=== PATIENT | female | born 1960 | race Caucasian/White ===

== ENCOUNTER 2020-01-11 12:28 | Outpatient (CLI) | payer BC ==
--- NOTE | 2020-01-12 09:54 | MRI ---
MRI RIGHT THUMB: Date: 01/11/2020 PROVIDED CLINICAL HISTORY: Right thumb pain without injury. FINDINGS: No comparisons. There is a circumscribed focus of fluid signal intensity at the dorsal aspect of the thumb IP joint, the distal aspects of which terminate proximal to the nail fold. This measures about 9.0 mm in cranio caudal dimension. This is difficult to visualize on the axial sequence, but probably measures about 4 .0 mm in transverse dimension. This is superficial to the terminal band of the thumb extensor tendon. The extensor tendon and subjacent bone appear normal. The nail plate and nail bed appear normal. The IP and MCP joint spaces appear maintained. No regional joint effusion is evident. The thumb radia l and ulnar collateral ligaments appear intact. The courses of the regional major neurovascular struc tures appear unremarkable. No focal concerning regional marrow or muscular signal abnormality apparen t. The thumb flexor, abductor, and adductor tendons appear intact. IMPRESSION: 9.0 mm circumscribed fluid signal intensity mass superficial to the thumb IP joint as described. Cons ider postcontrast imaging to discriminate between cystic and solid lesion. Differential consideration s would include ganglion cyst, soft tissue chondroma and hemangioma. POS: [facility]
== END 2020-01-11 12:29 | disposition home or self-care (01) ==
LOC: SCSMRI 12:28
PROVIDERS: ATTEND Orthopaedic Surgery
DX: M79.644 Pain in right finger(s) (principal)

== ENCOUNTER 2020-02-17 07:18 | Outpatient (CLI) | payer BC, OTHER ==
[2020-02-17 18:02] LABS: #Basophils 0.1 thou/uL (0.0-0.2); #Eosinphils 0.1 thou/uL (0.0-0.7); #Lymphocytes 1.9 thou/uL (1.20-3.40); #Monocytes 0.5 thou/uL (0.11-0.59); #Neutrophils 2.9 thou/uL (1.40-6.50); %Lymphocytes 35.6 % (21.0-51.0); %Monocytes 8.5 % (0.0-10.0); %Neutrophils 53.9 % (42.0-75.0); Hemoglobin 13.8 g/dL (12.0-16.0); Mean Corpuscular HGB CONC 35.2 g/dL (32.0-36.0); Mean Corpuscular Hemoglobin 30.4 pg (27.0-31.0); Mean Corpuscular Volume 86.3 fL (78.0-98.0); Mean Platelet Volume 8.1 fL (7.4-10.4); Platelet Count 229 thou/uL (130-400); RBC Distribution Width 11.8 % (11.5-14.5); Red Blood Cell (RBC) Count 4.56 mill/uL (4.20-5.40); White Blood Cell (WBC) Count 5.4 thou/uL (4.8-10.8)
[2020-02-18 12:16] LABS: SARS-CoV-2 MS2 Positive; SARS-CoV-2 N Gene Negative; SARS-CoV-2 S Gene Negative; SARS-CoV-2 orf1ab Negative
== END 2020-02-17 07:19 | disposition home or self-care (01) ==
LOC: LABBT 07:18
PROVIDERS: ATTEND Orthopaedic Surgery Hand Surgery
DX: Z01.818 Encounter for other preprocedural examination (principal); Z11.59 Encounter for screening for other viral diseases; M67.441 Ganglion, right hand
CPT/HCPCS: 85025; 87635; 93005; 93010; U0003

== ENCOUNTER 2020-02-20 12:11 | Day surgery (SDC) | payer BC ==
[2020-02-17 14:15] VITALS: BMI 23.3
[~2020-02-20 12:11] MED LIST: Dexamethasone 20 MG/5 ML VIAL ONE; EPHEDRINE 25 MG/5 ML SYRINGE ONE; Ketorolac Tromethamine 30 MG/ML VIAL ONE; Lidocaine 1% PF 5 ML VIAL ONE; Ondansetron PF 4 MG/2 ML Vial ONE; PROPOFOL 200 MG/20 ML VIAL ONE
[2020-02-20] MEDS ORDERED: Bupivacaine PF 0.5% 30 ML VIAL ONE (12:59)
[2020-02-20] MEDS ORDERED: Bacitracin Zinc Ointment 30 gm TUBE ONE (12:59)
[2020-02-20] MEDS ORDERED: Betamet Acet/Betamet Na Ph 30 MG/5 ML VIAL ONE ×2 (13:00→14:49)
[2020-02-20] MEDS ORDERED: Midazolam HCl 2 mg/2 ml Vial ONE (13:26)
[2020-02-20] MEDS ORDERED: Fentanyl 100 MCG/2 ML VIAL ONE (13:26)
[2020-02-20] MEDS ORDERED: Ketorolac Tromethamine 30 MG/ML VIAL ONE (15:40)
--- NOTE | 2020-02-21 12:37 | OP ---
DATE OF PROCEDURE: 02/20/2020 PREOPERATIVE DIAGNOSIS: Right thumb ganglion. POSTOPERATIVE DIAGNOSIS: Right thumb ganglion with ganglion cyst cavity collapsed, but with a defect in the extensor mechanism on the radial side of the interphalangeal joint, leading to the joint where we found almost a 1 cm area of ganglion cyst type cavity with synovitis. PROCEDURE PERFORMED: 1. Arthrotomy with synovectomy, right thumb interphalangeal joint. 2. Arthrotomy with ganglion cyst cavity excision, right thumb interphalangeal joint. INDICATION: Mass although sessile, they were very prominent in clinic and also subcutaneous fullness felt on the radial dorsal aspect of the joint today. DESCRIPTION OF PROCEDURE: After successful general endotracheal anesthesia, the limb was prepped and draped. We gave the patient 6 mL of 0.5% Marcaine at metacarpophalangeal block level and then made a Z-type incision centered over the interphalangeal joint after exsanguination of the limb and inflation of tourniquet to 250 mmHg pressure. We then found the remnant of the ganglion cyst cavity, approximately 6 mm x 2 mm and it had a stalk that went through the interphalangeal joint. We then made a midline tenotomy of the extensor mechanism over the interphalangeal joint, found the stalk connection, and then elevated this, and then removed it with a tenotomy scissor as a tenosynovectomy. The patient then had the joint now completely cleaned and the area as far proximally as 1.5 cm underneath the tendon, all synovitis was removed. We then sent the specimen off to the lab, and we placed 2 mL of Celestone in the joint for anti-inflammatory effect and then closed the mechanism of the terminal extensor of the thumb with interrupted 5-0 Prolene because of the longitudinal incision. The knot was buried. We released the tourniquet, and the patient had hemostasis obtained. The incision itself was closed with interrupted 5-0 nylon in simple pattern and the patient left the operating room with a splint applied and no evidence of anesthetic or operative complication. Job ID: [id number]
--- NOTE | 2020-02-23 05:36 | HP ---
CHIEF COMPLAINT: Right thumb mass. HISTORY OF PRESENT ILLNESS: The patient reports a right thumb mass, which is painful when it enlarges, has been there for greater than six months. It has not resolved with conservative treatment. She denies numbness and tingling. PAST MEDICAL HISTORY: Surgery includes; 1. section x2. 2. Total hysterectomy. 3. Sinus surgery. 4. Temporomandibular joint surgery. FAMILY HISTORY: Positive for hypertension in maternal and paternal. ALLERGIES: NO KNOWN DRUG ALLERGIES. MEDICATIONS: See attached sheet already in chart. PHYSICAL EXAMINATION: GENERAL: The patient is awake, alert, and oriented x3. Thin female with a slightly increased wrinkle pattern in the face compared to stated age. EXTREMITIES: She has no masses seen anywhere except in her thumb, where there was a sessile type mass today. However seen in clinic, it was actually almost the size of a peanut M and M. Today, she has 10 degrees decreased flexion and 10 degrees decreased extension at the right thumb interphalangeal joint compared to contralateral side. Normal two-point discrimination at this thumb and 1 second refill. There is no A1 km abnormality. Negative Tinel's. 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 LABORATORY DATA: Radiographic assessment showed outline of the mass, where previous radiographs taken when the mass was prominent. No evidence of cammie arthritis and the large osteophytes were seen, only minimal sclerosis. ASSESSMENT/RECOMMENDATION: Degenerative cyst, probably ganglion from the joint. Recommend find the stalk, remove the ganglion and give her at least a 75% to 80% chance of not recurrence. The patient understands chance of recurrence, chance of infection, scar formation and later arthritis and if that occurs, then it will more likely recur the mass. She still agreed to proceed. Job ID: [id number]
== END 2020-02-20 16:45 | disposition home or self-care (01) ==
LOC: SDC 12:11
PROVIDERS: ATTEND Orthopaedic Surgery Hand Surgery
PROC: 0RBW0ZZ Excision of Right Finger Phalangeal Joint, Open Approach (ICD-10-PCS; principal; 2020-02-20)
DX: M67.441 Ganglion, right hand (principal); M65.841 Other synovitis and tenosynovitis, right hand; F32.9 Major depressive disorder, single episode, unspecified; F41.9 Anxiety disorder, unspecified; Z79.1 Long term (current) use of non-steroidal anti-inflammatories (NSAID); Z79.899 Other long term (current) drug therapy
CPT/HCPCS: 88304; J0690; J0702; J1100; J1885; J2001; J2250; J2405; J2704; J3010; J3490; S0020